=== PATIENT | female | born 2000 | race Caucasian/White ===

== ENCOUNTER 2025-01-23 00:41 | Day surgery (SDC) | payer OTHER, SELFPAY ==
[2025-01-17 17:20] VITALS: BMI 30.4
--- NOTE | 2025-01-17 18:25 | SUR.PREOP ---
Report to the Outpatient Waiting Room, entrance under the green pavilion located off [facility], at time 0600 on date 01/23/25. Planned Procedure Time: 0730.? Time changes happen often and if your time is changed the preop area will call you the afternoon before. - You and your visitor will be asked to self-screen and do not enter if you have any COVID symptoms. Please call surgeon if you need to reschedule. - A mask is optional within the hospital at this time. Patients may have clear liquids (water, carbonated beverages, clear teas, apple juice) until 3 hours prior to surgery with a maximum of 20 ounces. - No food from midnight until time of surgery and no smoking, or chewing tobacco (or any form of nicotine). No chewing gum, candy or mints. - Infants may have breast milk until 4 hours before surgery, formula 6 hours prior to surgery. - Children will be allowed to drink immediately following surgery.? If applicable, please bring a bottle or sippy cup to assist with drinking. Juice, water, soda, and popsicles are readily available.? For infants on formula, please bring formula the day of surgery.? Pacifiers are allowed. Take only the following medications with a SIP of water on the morning of surgery: ___pt stated that she was not going to take morning meds because she needs food with them DO NOT STOP ANY OF YOUR OTHER PRESCRIPTION MEDICATIONS PRIOR TO SURGERY EXCEPT THE FOLLOWING Hold all vitamins and supplements for 3 days per anesthesiologist. Medications to discontinue per physician vitamins and supplements per 3 days Date to take last dose Please no make-up, nail bolivian, hairspray, perfume, deodorant, or body powder the day of surgery.? No jewelry (including any body piercings) or valuables the day of surgery, leave them at home.? Please take a shower or bath the night before, or the morning of, surgery with an antibacterial soap.? Wear comfortable, loose fitting clothing.? Children are encouraged to wear pajamas. - Jewelry must be removed prior to entering the operating room.? Rings and piercings that are not removed may be cut off. - The hospital will not accept responsibility for valuables.? - Please leave all valuables, including medications, at home the day of surgery. If you are going home after surgery, a licensed nascar driver must drive you home.? - NO public transportation without another adult if you receive anesthesia. - We recommend that an adult stay with you for 24 hours following discharge. - We also recommend that you do not drive, make important decision, drink alcoholic beverages, or take any drugs that were not prescribed by your health care provider for at least 24 hours after your discharge time. For Pediatric surgeries, we recommend two adults accompany the child home. Follow any additional instructions given to you from your surgeon. Telephone instructions given to _patient__and asked if any additional questions and then verbalized understanding. Patient advised to call surgeon office or pre surgery nurse liaison [phone] if any additional questions.
[2025-01-23] VITALS (9 sets, daily range): BP systolic 112–128; BP diastolic 68–86; PULSE 53–74; RESP 14–16; TEMP 36.4–37; O2SAT 95–100; BMI 31.8
[2025-01-23 06:33] LABS: Hematocrit 40.8 % (37.0-47.0)
[2025-01-23] MEDS: ACETAMINOPHEN 500 MG TABLET 1000 MG PO (06:35)
[2025-01-23] MEDS: KETOROLAC 15 MG/ML VIAL (*BKC) IV PUSH (06:35)
[2025-01-23 06:49] LABS: BEDSIDEPREGUCG Negative (Negative)
--- NOTE | 2025-01-23 06:54 | WPDANESEPPF ---
Anes - Initial Pre Proc Eval Procedure: Operation Date: 01/23/25 07:30 Proposed Procedures p Laparoscopic Bilateral Tubal Ligation with Fulguration of Oviducts - Chris Ashraf MD Date/Time: 01/23/25 06:54 Surgeon: Chris Ashraf MD Pre Op Diagnosis: Female Sterilization Patient Data Age: 24 Gender: F Height: 1.73 m Weight: 95 kg Last Vital Signs Temp 37.0 C 01/23/25 06:10 Pulse 74 01/23/25 06:10 Resp 16 01/23/25 06:10 BP 126/78 01/23/25 06:10 Pulse Ox 99 01/23/25 06:10 Allergies Allergy/AdvReac Type Severity Reaction Status Date / Time latex Allergy Mild Swelling Verified 01/23/25 06:40 Penicillins Allergy Unknown Hives Verified 01/23/25 06:40 Home Medications ?Medication ?Instructions ?Recorded ?Confirmed ?Type Vitamin B12 1 cap PO DAILY 01/17/25 01/17/25 History Vitamin D 1 cap PO DAILY 01/17/25 01/17/25 History albuterol sulfate 90 mcg/actuation 2 puff inhalation Q6H PRN 01/17/25 01/17/25 History aerosol inhaler shortness of breath or wheezing ferrous sulfate 325 mg (65 mg 325 mg PO DAILY 01/17/25 01/17/25 History iron) tablet (Feosol) methylphenidate HCl 36 mg 36 mg PO DAILY 01/17/25 01/17/25 History tablet,extended release 24 hr rimegepant 75 mg disintegrating 75 mg PO PRN migraine 01/17/25 01/17/25 History tablet (Nurtec ODT) sertraline 25 mg tablet 25 mg PO DAILY 01/17/25 01/17/25 History Laboratory Tests 01/23/25 01/23/25 06:10 06:22 Hgb Pending Hct Pending POC Urine HCG, Qual Negative (Negative) Patient hx anesthesia problems: none Family hx anesthesia problems: none Results Review: All pre-operative results and documents have been reviewed as part of the pre-operative evaluation. [facility] Past Medical History Medical History (Updated 01/23/25 @ 06:55 by Santino Barone DO) ADHD Long COVID inhaler Anemia Social History Social History Substance use type: does not use Living arrangements: with family Anes - Eval Final PreProcedure Day of Procedure 01/23/25 06:54 Patient weight: obese Heart: regular rate and rhythm Lungs: clear to auscultation Airway: Mallampati scale class II Neurological: alert and oriented Last oral intake: >/= 8 hours ASA classification: II Emergent: no Anesthetic plan: proceed Anesthesia type and monitoring: general ETT and standard monitoring Results Review: All pre-operative results and documents have been reviewed as part of the pre-operative evaluation. Informed Consent: The patient's anesthetic plan and its attendant risks and benefits were discussed with the patient/family/POA. Questions were solicited and answers provided to the satisfaction of the patient/family/POA.
[2025-01-23] MEDS: SCOPOLAMINE 1 MG PATCH 1 PATCH TRANSDERM (07:20)
--- NOTE | 2025-01-23 07:25 | P.HP_ITS ---
H&P: HPI History of Present Illness Date/Time: 01/23/25 07:25 Chief Complaint: Unwanted fertility Narrative: Patient is a 24-year-old female with unwanted fertility. We have agreed to perform laparoscopic bilateral salpingectomy and IUD removal. She understands risks, benefits, and alternatives. She has completed informed consent process is ready to proceed. The patient understands the details of the procedure. The procedure has been explained in detail. She understands the risks. She understands that injuries may occur that result in hospitalization, more surgery, and severe illness. She understands risk of hemorrhage and infection. She denies any chest pain or shortness of breath. She denies any nausea, vomiting, fever, chills. Review of Systems Review of Systems: All systems reviewed & are unremarkable except as noted in HPI and below Constitutional: Constitutional: Denies chills, Denies fatigue, Denies fever(s) and Denies weakness Eyes: Eyes: Denies blurry vision, Denies change in vision, Denies loss of peripheral vision, Denies loss of vision, Denies other visual disturbances and Denies eye pain ENT: Denies vertigo, Denies dizziness, Denies hearing loss, Denies mouth pain, Denies nasal obstruction, Denies neck mass and Denies neck pain Cardiovascular: Cardiovascular: Denies chest pain, Denies diaphoresis, Denies syncope, Denies leg edema and Denies dyspnea Respiratory: Respiratory: Denies chest congestion, Denies cough, Denies hemoptysis, Denies dyspnea and Denies wheezing Gastrointestinal: Gastrointestinal: Denies abdominal pain, Denies constipation, Denies diarrhea, Denies nausea and Denies vomiting Genitourinary: Genitourinary: Denies hematuria, Denies change in libido, Denies nocturia, Denies genital lesions, Denies flank pain and Denies urinary urgency Musculoskeletal: Musculoskeletal: Denies abnormal gait, Denies back pain, Denies myalgias, Denies arthralgias, Denies joint swelling, Denies muscle weakness and Denies neck pain Integumentary/Breasts: Skin/Breast: Denies swelling, Denies breast pain, Denies breast mass, Denies dry skin, Denies nipple discharge, Denies unusual bruising and Denies jaundice Neurologic: Denies Neuro-related abnormal movements, Denies Abnormal speech present, Denies abnormal gait, Denies behavioral changes, Denies confusion, Denies vertigo, Denies dizziness, Denies syncope, Denies loss of vision, Denies memory loss, Denies convulsions and Denies weakness Psychiatric: Psychiatric: Denies abnormal sleep pattern, Denies behavioral changes, Denies change in libido, Denies confusion, Denies depression, Denies anhedonia and Denies memory loss Endocrine: Endocrine: Reports no additional endocrine complaints, Denies change in libido and Denies fatigue Hematologic/Lymphatic: Hematologic/Lymphatic: Reports no additional hematologic/lymphatic complaints Allergic/Immunologic: Allergic/Immunologic: Reports no additional allergic/immunologic complaints and Denies wheezing PMF Past Medical History Medical History (Updated 01/23/25 @ 07:27 by Chris Ashraf MD) ADHD Long COVID inhaler Anemia Social History Social History (Updated 01/23/25 @ 07:06 by Santino Barone DO) Substance use type: does not use Living arrangements: with family Spiritual care concerns: Yes (Confucianism) Agree to blood products: No Meds Home Medications and Allergies Home Medications ?Medication ?Instructions ?Recorded ?Confirmed ?Type Vitamin B12 1 cap PO DAILY 01/17/25 01/17/25 History Vitamin D 1 cap PO DAILY 01/17/25 01/17/25 History albuterol sulfate 90 mcg/actuation 2 puff inhalation Q6H PRN 01/17/25 01/17/25 History aerosol inhaler shortness of breath or wheezing ferrous sulfate 325 mg (65 mg 325 mg PO DAILY 01/17/25 01/17/25 History iron) tablet (Feosol) methylphenidate HCl 36 mg 36 mg PO DAILY 01/17/25 01/17/25 History tablet,extended release 24 hr rimegepant 75 mg disintegrating 75 mg PO PRN migraine 01/17/25 01/17/25 History tablet (Nurtec ODT) sertraline 25 mg tablet 25 mg PO DAILY 01/17/25 01/17/25 History Allergies Allergy/AdvReac Type Severity Reaction Status Date / Time latex Allergy Mild Swelling Verified 01/23/25 06:40 Penicillins Allergy Unknown Hives Verified 01/23/25 06:40 Vital Signs Vital Signs - 24 hr 01/23/25 06:10 Temperature 98.6 F Pulse Rate 74 Respiratory Rate 16 Blood Pressure 126/78 Pulse Oximetry 99 Exam Const: General: cooperative, healthy appearing, comfortable and no acute distress Orientation/consciousness: oriented to person, oriented to place and oriented to time HENMT: Head: normal to inspection Ears: external ears normal Face/Nose/Sinus: Normal external nose present and normal facial exam Face and sinus: normal facial exam Eyes: General: appearance normal, both eyes and all related structures Neck: Neck: normal visual inspection, trachea midline and supple Resp: Auscultation: clear to auscultation bilaterally, no crackles, no rales, no rhonchi and no wheezes Cardio: Rate: regular rate Rhythm: regular rhythm Heart sounds: no click, no murmurs and no rubs GI: GI Palp: No abdominal tenderness, No Soft to palpation, No Tenderness to palpation present (GI) and No Palpable mass present Auscultation: normal bowel sounds Skin: General skin exam: normal color and no rashes or lesions noted Neuro: General: oriented to person, oriented to place and oriented to time Extrem: General: normal to inspection, no joint enlargement, no clubbing, cyanosis or edema, no pedal edema and no calf tenderness Psych: Appearance: grossly normal Mental Status: mental status grossly normal Speech and movement: Normal speech and movement present H&P: Results Labs Labs: Short CBC 01/23/25 Range/Units 06:22 Hgb 13.0 (12.0-15.0) g/dL Hct 40.8 (37.0-47.0) % Assessment and Plan Assessment and plan (1) Unwanted fertility: Code(s): Z30.09 - Encounter for other general counseling and advice on contraception Status: Acute Plan Patient is a 24-year-old female with unwanted fertility. We have agreed to perform laparoscopic bilateral salpingectomy and IUD removal. She understands risks, benefits, and alternatives. She has completed informed consent process is ready to proceed.
--- NOTE | 2025-01-23 07:25 | WPDHPUPDATE1 ---
History and Physical Update Update Date/Time: 01/23/25 07:25 History and Physical has been reviewed, including an updated exam of the patient. There are NO changes in the patient's condition. Risks, benefits, and alternatives have been discussed and questions answered. Patient agrees to proceed with procedure.
--- NOTE | 2025-01-23 07:58 | S_PTH ---
PATIENT: Halley Lucsa LOC: [facility] U#:[id number] AGE/SX: 24/F ROOM: RE01/23/[address]: Chris Ashraf MD : [id number] BED: DIS: 01/23/2025 SPEC #: [id number] RECD: 01/23/25 09:55 STATUS: ROBERT REQ #: [id number] BROOK: 01/23/25 07:[address]: Chris Ashraf DEPT: [facility] Surgical RECD BY: Basim Acosta ENTERED: 01/23/25 09:55 SP TYPE: Surgical OTHR DR: Lesley White, WOODYARD OPERATOR Tissues: A - Fallopian Tube Bilateral Procedures: Gross and Microscopic Level 2 Hematoxylin and Eosin Stain
[2025-01-23] MEDS: LACTATED RINGERS 1,000 ML 30 ML IV CONT ×2 (08:23)
--- NOTE | 2025-01-23 08:34 | P.OP_ITS ---
Procedure Note - Detailed Date of Procedure 01/23/25 Pre-op Diagnosis Female Sterilization Post-op Diagnosis Same Procedure Performed Laparoscopic bilateral salpingectomy Surgeon Chris Ashraf MD Anesthesia General Indications Unwanted fertility Findings Normal pelvic anatomy Description of Procedure The patient was taken the operating room. She was prepped and draped in the dorsal lithotomy position after induction of general anesthesia. A 5 mm skin incision was made in the left upper quadrant of the abdominal skin. A 5 mm trocar was inserted the intra-abdominal cavity under direct visualization of the scope. Pneumoperitoneum was achieved. A 5 mm trocar was inserted in the left lower quadrant identical fashion. A 5 mm infraumbilical trocar was inserted in identical fashion as well. The bilateral fallopian tubes were removed. This was done by using a LigaSure cautery. The mesosalpinx adjacent to the tube was cauterized transected with LigaSure. This was initiated in the area the ovary and in a stepwise fashion moved medially to the area of the cornu of the uterus. Once there the fallopian tube was cauterized and transected. This was done in identical fashion on each side. The fallopian tubes were taken out through the left lower quadrant trocar site. The pneumoperitoneum was reduced. The trocars removed. The skin was closed with subcuticular 4 Monocryl and covered with De rmabond. She was taken to cover stable condition. Sponge lap and needle counts were correct x2. Estimated Blood Loss 5 Drains No Packing No Pathology Yes Complications No immediate complications Condition Stable Disposition PACU
[2025-01-23] MEDS: fentaNYL CITRATE INJ (*CRX) 100 MCG/2 ML VIAL 25 MCG IV PUSH ×4 (08:49→09:01)
[2025-01-23] MEDS: ONDANSETRON INJ 4 MG/2 ML VIAL IV PUSH (09:36)
[2025-01-23] MEDS: oxyCODONE HCL (*CRX) 5 MG TAB IR PO (09:52)
== END 2025-01-23 10:26 | disposition home or self-care (01) ==
PROVIDERS: Anesthesiology; PCP Nurse Practitioner; Visit Provider Obstetrics & Gynecology
PROC: (CPT 58671; principal; 2025-01-23 07:30)
DX: Z30.2 Encounter for sterilization (principal); N83.8 Other noninflammatory disorders of ovary, fallopian tube and broad ligament; G89.18 Other acute postprocedural pain; D64.9 Anemia, unspecified; F90.9 Attention-deficit hyperactivity disorder, unspecified type; E66.9 Obesity, unspecified; Z68.31 Body mass index [BMI] 31.0-31.9, adult; Z79.51 Long term (current) use of inhaled steroids
CPT/HCPCS: 58661; 58579; 36415; 85014; 85018; 88302; A9270; J1100; J1885; J2003; J2250; J2405; J2704; J3010; J7030; J7120